=== PATIENT | female | born 1985 | race American Indian/Alaskan Native ===

== ENCOUNTER 2018-05-24 19:02 | Emergency (ER) | payer MEDICAID ==
--- NOTE | 2018-05-24 19:26 | Emergency Department Report ---
Blank Doc - Documentation Documentation: This is a 33-year-old female that presents with abdominal pain with nausea and vomiting x1 day. Denies any other complaints or symptoms. This initial assessment diagnostic orders/clinical plan/treatment(s) is/are subject to change based on patient's health status, clinical progression and re- assessment by fellow clinical providers in the ED. Further treatment and workup at subsequent clinical providers discretion. Patient/guardians urged not to elope from ED s their condition may be serious if not clinically assessed and managed. Initial orders include: 1-Patient sent to [facility] for further evaluation and treatment 2- UA 3- labs
[2018-05-24 20:22] LABS: Alanine Aminotransferase 11 units/L (7-56); Albumin 3.7 g/dL (3.9-5); BUN/Creatinine Ratio 17; Blood Urea Nitrogen 12 mg/dL (7-17); Calcium 8.3 mg/dL (8.4-10.2); Hemolysis Index 1
[2018-05-24 20:25] LABS: Basophils % (Auto) 0.2 % (0.0-1.8); Eosinophils # (Auto) 0.2 K/mm3 (0.0-0.4); Eosinophils % (Auto) 2.6 % (0.0-4.3); Hematocrit 36.3 % (30.3-42.9); Hemoglobin 11.9 gm/dl (10.1-14.3); Lymphocytes # (Auto) 1.1 K/mm3 (1.2-5.4); Mean Corpuscular HGB Conc 33 % (30-34); Mean Corpuscular Volume 84 fl (79-97); Monocytes # (Auto) 0.4 K/mm3 (0.0-0.8); Monocytes % (Auto) 6.6 % (0.0-7.3); Platelet Count 271 K/mm3 (140-440); Red Blood Count 4.31 M/mm3 (3.65-5.03); Red Cell Distribution Width 13.8 % (13.2-15.2)
[2018-05-24] MEDS ORDERED: ZOFRAN ODT ONE (22:55)
[2018-05-24] MEDS ORDERED: TYLENOL ONE (22:55)
[2018-05-24] MEDS ORDERED: TYLENOL PO ONE (22:56)
[2018-05-24] MEDS ORDERED: ZOFRAN ODT PO ONE (22:56)
--- NOTE | 2018-05-24 23:41 | Ultrasound Report ---
FINAL REPORT PROCEDURE: US OB < = 14 WEEKS FETUS TECHNIQUE: Real-time transabdominal sonography of the uterus, placenta, amniotic fluid, adnexa, and fetus was performed with image documentation. Measurements were obtained to determine age/size. M-mode Doppler was used to document heartbeat. CPT 22434 HISTORY: +hcg, abd pain ,n/v COMPARISON: No prior studies are available for comparison. FINDINGS: CRL: 2.5 mm, which corresponds to a gestational age of: 5 weeks, 6 days. Yolk Sac: Normal. Embryonic Cardiac Activity: 104 beats per minute Gestational Sac: Normal. Amniotic fluid: Normal. Cervix: Normal. Right Ovary: Normal. Left Ovary: There is a 3 centimeters cyst in the left ovary. Estimated delivery date: 01/18/2019 Uterus and adnexa: Normal. IMPRESSION: Single live intrauterine gestation at approximately 5 weeks and 6 days. EDC by US 01/18/2019
--- NOTE | 2018-05-24 23:42 | Ultrasound Report ---
FINAL REPORT PROCEDURE: US OB transvaginal TECHNIQUE: Real-time transvaginal sonography of the uterus, placenta, amniotic fluid, adnexa, and fe tus was performed with image documentation. Measurements were obtained to determine age/size. M -mode Doppler was used to document heartbeat. HISTORY: +hcg, abd pain ,n/v COMPARISON: No prior studies are available for comparison. FINDINGS: CRL: 2.5 mm, which corresponds to a gestational age of: 5 weeks, 6 days. Yolk Sac: Normal. Embryonic Cardiac Activity: 104 beats per minute Gestational Sac: Normal. Amniotic fluid: Normal. Cervix: Normal. Right Ovary: Normal. Left Ovary: There is a 3 centimeters cyst in the left ovary. Estimated delivery date: 01/18/2019 Uterus and adnexa: Normal. IMPRESSION: Single live intrauterine gestation at approximately 5 weeks and 6 days. EDC by US 01/18/2019
--- NOTE | 2018-05-25 00:01 | Emergency Department Report ---
ED Female HPI - General Chief complaint: Abdominal Pain Stated complaint: DIARRHEA/VOMITING/ABD PAIN Time Seen by Provider: 05/24/18 19:24 Source: patient Mode of arrival: Ambulatory Limitations: No Limitations - History of Present Illness Initial comments: 33-year-old -[place] female comes in complaining of abdominal pain, nausea, vomiting and diarrhea as well as all over body aches since 03 100 this morning. She is 3 para 1. No complications. Last menstrual period was 04/06/2018. Patient denies any vaginal bleeding or vaginal discharge. Patient has taken nothing for pain. Patient reports a past medical history asthma and kidney stones. Patient reports that her fianc and her 3-year-old son has the same symptoms. -: This morning Time: 03:00 Location: suprapubic Radiation: non-radiating Severity: severe Severity scale (0 -10): 10 Quality: sharp, aching Consistency: constant Improves with: none Worsens with: none Are you Now?: No Last Menstrual Period: 04/06/18 EDC: 01/11/19 Associated Symptoms: nausea/vomiting, other (diarrhea) - Related Data Sexually active: Yes : 3 Para: 1 A: 1 Previous Rx's Medication Instructions Recorded Last Taken Type ALBUTEROL Inhaler (OR & NICU) 2 puff IH QID PRN #1 inhalation 05/26/14 Unknown Rx [ProAir HFA Inhaler] Loratadine [Claritin] 10 mg PO DAILY #30 tablet 05/26/14 Unknown Rx Promethazine /Codeine 5 ml PO Q6H PRN #150 ml 05/26/14 Unknown Rx [Phenergan/Codeine 6.25-10 mg/5 ml] predniSONE [Deltasone] 40 mg PO QDAY #10 tab 05/26/14 Unknown Rx Albuterol Sulfate [Ventolin HFA] 2 puff IH Q4H PRN #1 hfa.aer.ad 07/12/14 Unknown Rx Ondansetron [Zofran Odt] 4 mg PO Q6H PRN #15 tab.rapdis 07/12/14 Unknown Rx oxyCODONE /ACETAMINOPHEN [Percocet 1 tab PO Q6HR PRN #10 tablet 07/12/14 Unknown Rx 5/325] predniSONE [Deltasone] 50 mg PO QDAY #4 tab 07/12/14 Unknown Rx ALBUTEROL NEB's [Proventil 0.083% 2.5 mg IH TID PRN #1 box 08/18/14 Unknown Rx NEBS] predniSONE [Prednisone] 40 mg PO DAILY 5 Days tablet 08/18/14 Unknown Rx Acetaminophen/Codeine [Tylenol 1 tab PO Q6H PRN #12 tab 02/20/18 Unknown Rx /Codeine # 3 tab] Doxylamine Succinate [Sleep Aid] 25 mg PO BID #40 tablet 05/25/18 Unknown Rx Kassi Root [Kassi] 250 mg PO QID #40 capsule 05/25/18 Unknown Rx Pnv,Calcium 72/Iron/Folic Acid 1 each PO QDAY #90 tablet 05/25/18 Unknown Rx [ Plus Tablet] Pyridoxine HCl (Vitamin B6) [B-6] 200 mg PO BID #40 tablet.er 05/25/18 Unknown Rx Allergies Allergy/AdvReac Type Severity Reaction Status Date / Time aspirin Allergy Rash Verified 08/09/13 04:58 iodine Allergy Swelling Verified 04/27/14 21:36 shellfish derived Allergy Swelling Verified 04/27/14 21:36 ED Review of Systems ROS: Stated complaint: DIARRHEA/VOMITING/ABD PAIN Other details as noted in HPI Comment: All other systems reviewed and negative Constitutional: denies: chills, fever Gastrointestinal: abdominal pain, nausea, vomiting, diarrhea Skin: denies: rash, lesions Neurological: denies: headache, weakness, paresthesias Psychiatric: denies: anxiety, depression ED Past Medical Hx - Past Medical History Hx Kidney Stones: Yes Hx Asthma: Yes - Social History Smoking Status: Never Smoker Substance Use Type: Alcohol - Medications Home Medications: Home Medications Medication Instructions Recorded Confirmed Last Taken Type ALBUTEROL Inhaler (OR & NICU) 2 puff IH QID PRN #1 inhalation 05/26/14 Unknown Rx [ProAir HFA Inhaler] Loratadine [Claritin] 10 mg PO DAILY #30 tablet 05/26/14 Unknown Rx Promethazine /Codeine 5 ml PO Q6H PRN #150 ml 05/26/14 Unknown Rx [Phenergan/Codeine 6.25-10 mg/5 ml] predniSONE [Deltasone] 40 mg PO QDAY #10 tab 05/26/14 Unknown Rx Albuterol Sulfate [Ventolin HFA] 2 puff IH Q4H PRN #1 hfa.aer.ad 07/12/14 Unknown Rx Ondansetron [Zofran Odt] 4 mg PO Q6H PRN #15 tab.rapdis 07/12/14 Unknown Rx oxyCODONE /ACETAMINOPHEN [Percocet 1 tab PO Q6HR PRN #10 tablet 07/12/14 Unknown Rx 5/325] predniSONE [Deltasone] 50 mg PO QDAY #4 tab 07/12/14 Unknown Rx ALBUTEROL NEB's [Proventil 0.083% 2.5 mg IH TID PRN #1 box 08/18/14 Unknown Rx NEBS] predniSONE [Prednisone] 40 mg PO DAILY 5 Days tablet 08/18/14 Unknown Rx Acetaminophen/Codeine [Tylenol 1 tab PO Q6H PRN #12 tab 02/20/18 Unknown Rx /Codeine # 3 tab] Doxylamine Succinate [Sleep Aid] 25 mg PO BID #40 tablet 05/25/18 Unknown Rx Kassi Root [Kassi] 250 mg PO QID #40 capsule 05/25/18 Unknown Rx Pnv,Calcium 72/Iron/Folic Acid 1 each PO QDAY #90 tablet 05/25/18 Unknown Rx [ Plus Tablet] Pyridoxine HCl (Vitamin B6) [B-6] 200 mg PO BID #40 tablet.er 05/25/18 Unknown Rx ED Physical Exam - General Limitations: No Limitations General appearance: alert, in no apparent distress - Head Head exam: Present: atraumatic, normocephalic - Eye Eye exam: Present: normal appearance, EOMI - ENT ENT exam: Present: mucous membranes moist ED Course Vital Signs 05/24/18 19:25 Temperature 98.4 F Pulse Rate 102 H Respiratory 18 Rate Blood Pressure 118/75 O2 Sat by Pulse 99 Oximetry ED Medical Decision Making - Lab Data Result diagrams: 05/24/18 19:35 05/24/18 19:35 - Radiology Data Radiology results: report reviewed Patient: POLLO MOHR MR#: [id number] : 1985 Acct:[id number] Age/Sex: 33 / F ADM Date: 05/24/18 Loc: ED Attending Dr: Ordering Physician: TOD PHELAN Date of Service: 05/24/18 Procedure(s): US OB <= 14 weeks fetus Accession Number(s): [id number] cc: TOD PHELAN FINAL REPORT PROCEDURE: US OB lt; = 14 WEEKS FETUS TECHNIQUE: Real-time transabdominal sonography of the uterus, placenta, amniotic fluid, adnexa, and fetus was performed with image documentation. Measurements were obtained to determine age/size. M-mode Doppler was used to document heartbeat. CPT 51474 HISTORY: +hcg, abd pain ,n/v COMPARISON: No prior studies are available for comparison. FINDINGS: CRL: 2.5 mm, which corresponds to a gestational age of: 5 weeks, 6 days. Yolk Sac: Normal. Embryonic Cardiac Activity: 104 beats per minute Gestational Sac: Normal. Amniotic fluid: Normal. Cervix: Normal. Right Ovary: Normal. Left Ovary: There is a 3 centimeters cyst in the left ovary. Estimated delivery date: 01/18/2019 Uterus and adnexa: Normal. IMPRESSION: Single live intrauterine gestation at approximately 5 weeks and 6 days. EDC by 01/18/2019 Transcribed By: CO Dictated By: BRAULIO ALCAZAR MD Electronically Authenticated By: BRAULIO ALCAZAR MD Signed Date/Time: 05/24/182340 DD/ 39 TD/TT: 05/24/182339 Critical care attestation.: If time is entered above; I have spent that time in minutes in the direct care of this critically ill patient, excluding procedure time. ED Disposition Clinical Impression: Nausea vomiting and diarrhea Qualifiers: Weeks of gestation: less than 8 weeks Qualified Code(s): Z3A.01 - Less than 8 weeks gestation of Disposition: DC-01 TO HOME OR SELFCARE Is pt being admited?: No Does the pt Need Aspirin: No Condition: Stable Instructions: Abdominal Pain (ED) Additional Instructions: Please take medication as prescribed. Please increase her fluid intake and advance her diet as tolerated. Please follow up with [facility]. Prescriptions: Doxylamine Succinate [Sleep Aid] 25 mg PO BID #40 tablet Kassi Root [Kassi] 250 mg PO QID #40 capsule Pnv,Calcium 72/Iron/Folic Acid [ Plus Tablet] 1 each PO QDAY #90 tablet Pyridoxine HCl (Vitamin B6) [B-6] 200 mg PO BID #40 tablet.er Referrals: [facility] [Provider Group] - 3-5 Days [facility] [Provider Group] - 3-5 Days [facility] [Provider Group] - 3-5 Days Forms: Work/School Release Form(ED), Accompanied Note
[2018-05-25 00:52] VITALS: BP 113/73
[2018-05-25] MEDS ORDERED: ZOFRAN ODT PO ONE (01:08)
[2018-05-25] MEDS ORDERED: ZOFRAN ODT ONE (01:11)
[2018-05-25 01:21] LABS: Bilirubin,Urine NEG (Negative); Blood,Urine NEG (Negative); Color,Urine Yellow (Yellow); Hyaline Casts,Urine 1 /LPF; Mucus,Urine 2+ /HPF; Urobilinogen,Urine < 2.0 mg/dL (<2.0)
== END 2018-05-25 01:34 | disposition home or self-care (01) ==
LOC: ED 19:02
DX: O26.891 Other specified pregnancy related conditions, first trimester (principal); R11.0 Nausea; O21.8 Other vomiting complicating pregnancy; R19.7 Diarrhea, unspecified; O99.511 Diseases of the respiratory system complicating pregnancy, first trimester; Z79.899 Other long term (current) drug therapy; Z88.6 Allergy status to analgesic agent; Z3A.01 Less than 8 weeks gestation of pregnancy; Z91.013 Allergy to seafood
CPT/HCPCS: 36415; 76801; 76817; 80053; 81001; 83690; 84702; 84703; 85025; Q0162

== ENCOUNTER 2018-06-28 09:56 | Emergency (ER) | payer MEDICAID ==
[2018-06-28 10:18] VITALS: BP 115/76
--- NOTE | 2018-06-28 11:34 | Emergency Department Report ---
ED HPI - General Chief complaint: Vaginal Bleeding Stated complaint: 8WKS/BLEEDING/PAIN Source: patient Mode of arrival: Ambulatory Limitations: No Limitations - History of Present Illness Initial comments: This is a 33-year-old -[place] female who presents with vaginal bleeding and abdominal pain since this morning. Patient states she is [address] Brumfield in [facility]. Her last menstrual period was 04/19/2018, A1 . She reports sharp pain in the pelvic region. Patient states she woke up this morning and she went to the restroom and small blood in the mucus discharge in toilet. She continued to wipe and saw spotting and tissue. She has soft tissue currently in panties. She also complains of some low back pain. She denies nausea, vomiting, diarrhea, vaginal discharge, tenderness, or chest pain. MD Complaint: abdominal pain, vaginal bleeding -: This morning Location: pelvis Radiation: back Severity: severe Severity scale (0 -10): 9 Quality: sharp Consistency: constant Improves with: none Worsens with: none Associated symptoms: vaginal bleeding, abdominal pain. denies: nausea/vomiting, vaginal discharge, dysuria, headache, vision changes, malaise, dysparuenia, rash, seizure, shortness of breath, syncope, weakness Vaginal bleeding: light :: Yes Number of weeks : 8 OB History - Current : no complications OB History - Previous Pregnancies: no complications Last menstrual period: 04/19/18 Pre- care: followed by OB - Related Data : 3 Para: 1 Ab: 1 () Previous Rx's Medication Instructions Recorded Last Taken Type ALBUTEROL Inhaler (OR & NICU) 2 puff IH QID PRN #1 inhalation 05/26/14 Unknown Rx [ProAir HFA Inhaler] Loratadine [Claritin] 10 mg PO DAILY #30 tablet 05/26/14 Unknown Rx Promethazine /Codeine 5 ml PO Q6H PRN #150 ml 05/26/14 Unknown Rx [Phenergan/Codeine 6.25-10 mg/5 ml] predniSONE [Deltasone] 40 mg PO QDAY #10 tab 05/26/14 Unknown Rx Albuterol Sulfate [Ventolin HFA] 2 puff IH Q4H PRN #1 hfa.aer.ad 07/12/14 U nknown Rx Ondansetron [Zofran Odt] 4 mg PO Q6H PRN #15 tab.rapdis 07/12/14 Unknown Rx oxyCODONE /ACETAMINOPHEN [Percocet 1 tab PO Q6HR PRN #10 tablet 07/12/14 Unknown Rx 5/325] predniSONE [Deltasone] 50 mg PO QDAY #4 tab 07/12/14 Unknown Rx ALBUTEROL NEB's [Proventil 0.083% 2.5 mg IH TID PRN #1 box 08/18/14 Unknown Rx NEBS] predniSONE [Prednisone] 40 mg PO DAILY 5 Days tablet 08/18/14 Unknown Rx Acetaminophen/Codeine [Tylenol 1 tab PO Q6H PRN #12 tab 02/20/18 Unknown Rx /Codeine # 3 tab] Doxylamine Succinate [Sleep Aid] 25 mg PO BID #40 tablet 05/25/18 Unknown Rx Kassi Root [Kassi] 250 mg PO QID #40 capsule 05/25/18 Unknown Rx Pnv,Calcium 72/Iron/Folic Acid 1 each PO QDAY #90 tablet 05/25/18 Unknown Rx [ Plus Tablet] Pyridoxine HCl (Vitamin B6) [B-6] 200 mg PO BID #40 tablet.er 05/25/18 Unknown Rx Allergies Allergy/AdvReac Type Severity Reaction Status Date / Time aspirin Allergy Rash Verified 08/09/13 04:58 iodine Allergy Swelling Verified 04/27/14 21:36 shellfish derived Allergy Swelling Verified 04/27/14 21:36 ED Review of Systems ROS: Stated complaint: 8WKS/BLEEDING/PAIN Other details as noted in HPI Constitutional: denies: chills, fever Respiratory: denies: cough, shortness of breath, wheezing Cardiovascular: denies: chest pain, palpitations Gastrointestinal: abdominal pain. denies: nausea, diarrhea Genitourinary: other (vaginal bleed and/or ). denies: urgency, dysuria, discharge Musculoskeletal: back pain. denies: joint swelling, arthralgia Skin: denies: rash, lesions Neurological: denies: headache, weakness, paresthesias Psychiatric: denies: anxiety, depression ED Past Medical Hx - Past Medical History Hx Kidney Stones: Yes Hx Asthma: Yes - Surgical History Past Surgical History?: No - Social History Smoking Status: Former Smoker Substance Use Type: None - Medications Home Medications: Home Medications Medication Instructions Recorded Confirmed Last Taken Type ALBUTEROL Inhaler (OR & NICU) 2 puff IH QID PRN #1 inhalation 05/26/14 Unknown Rx [ProAir HFA Inhaler] Loratadine [Claritin] 10 mg PO DAILY #30 tablet 05/26/14 Unknown Rx Promethazine /Codeine 5 ml PO Q6H PRN #150 ml 05/26/14 Unknown Rx [Phenergan/Codeine 6.25-10 mg/5 ml] predniSONE [Deltasone] 40 mg PO QDAY #10 tab 05/26/14 Unknown Rx Albuterol Sulfate [Ventolin HFA] 2 puff IH Q4H PRN #1 hfa.aer.ad 07/12/14 Unknown Rx Ondansetron [Zofran Odt] 4 mg PO Q6H PRN #15 tab.rapdis 07/12/14 Unknown Rx oxyCODONE /ACETAMINOPHEN [Percocet 1 tab PO Q6HR PRN #10 tablet 07/12/14 Unknown Rx 5/325] predniSONE [Deltasone] 50 mg PO QDAY #4 tab 07/12/14 Unknown Rx ALBUTEROL NEB's [Proventil 0.083% 2.5 mg IH TID PRN #1 box 08/18/14 Unknown Rx NEBS] predniSONE [Prednisone] 40 mg PO DAILY 5 Days tablet 08/18/14 Unknown Rx Acetaminophen/Codeine [Tylenol 1 tab PO Q6H PRN #12 tab 02/20/18 Unknown Rx /Codeine # 3 tab] Doxylamine Succinate [Sleep Aid] 25 mg PO BID #40 tablet 05/25/18 Unknown Rx Kassi Root [Kassi] 250 mg PO QID #40 capsule 05/25/18 Unknown Rx Pnv,Calcium 72/Iron/Folic Acid 1 each PO QDAY #90 tablet 05/25/18 Unknown Rx [ Plus Tablet] Pyridoxine HCl (Vitamin B6) [B-6] 200 mg PO BID #40 tablet.er 05/25/18 Unknown Rx ED Physical Exam - General Limitations: No Limitations General appearance: alert, in no apparent distress, obese - Respiratory Respiratory exam: Present: normal lung sounds bilaterally. Absent: respiratory distress - Cardiovascular Cardiovascular Exam: Present: regular rate, normal rhythm. Absent: systolic murmur, diastolic murmur, rubs, gallop - GI/Abdominal GI/Abdominal exam: Present: soft, tenderness (right upper quadrant and right lower quadrant tenderness), normal bowel sounds. Absent: distended, guarding, rebound, rigid - Back Exam Back exam: Present: normal inspection - Neurological Exam Neurological exam: Present: alert, oriented X3, normal gait - Psychiatric Psychiatric exam: Present: normal affect, normal mood - Skin Skin exam: Present: warm, dry, intact, normal color. Absent: rash ED Course Vital Signs 06/28/18 10:16 Temperature 98.1 F Pulse Rate 100 H Respiratory 20 Rate Blood Pressure 115/76 O2 Sat by Pulse 98 Oximetry ED Medical Decision Making - Lab Data Result diagrams: 06/28/18 11:36 Lab Results 06/28/18 06/28/18 06/28/18 Range/Units 11:36 11:36 11:36 WBC 9.4 (4.5-11.0) K/mm3 RBC 4.19 (3.65-5.03) M/mm3 Hgb 11.6 (10.1-14.3) gm/dl Hct 34.9 (30.3-42.9) % MCV 83 (79-97) fl MCH 28 (28-32) pg MCHC 33 (30-34) % RDW 13.9 (13.2-15.2) % Plt Count 310 (140-440) K/mm3 Lymph % (Auto) 25.2 (13.4-35.0) % [place] % (Auto) 8.3 H (0.0-7.3) % Eos % (Auto) 2.3 (0.0-4.3) % Baso % (Auto) 0.4 (0.0-1.8) % Lymph # 2.4 (1.2-5.4) K/mm3 [place] # 0.8 (0.0-0.8) K/mm3 Eos # 0.2 (0.0-0.4) K/mm3 Baso # 0.0 (0.0-0.1) K/mm3 Seg Neutrophils % 63.8 (40.0-70.0) % Seg Neutrophils # 6.0 (1.8-7.7) K/mm3 HCG, Quant 66552 H (0-4) mIU/mL Urine Color (Yellow) Urine Turbidity (Clear) Urine pH (5.0-7.0) Ur Specific [place] (1.003-1.030) Urine Protein (Negative) mg/dL Urine Glucose (UA) (Negative) mg/dL Urine Ketones (Negative) mg/dL Urine Blood (Negative) Urine Nitrite (Negative) Urine Bilirubin (Negative) Urine Urobilinogen (<2.0) mg/dL Ur Leukocyte Esterase (Negative) Urine WBC (Auto) (0.0-6.0) /HPF Urine RBC (Auto) (0.0-6.0) /HPF U Epithel Cells (Auto) (0-13.0) /HPF Blood Type B POSITIVE Antibody Screen Negative 06/28/18 Range/Units 11:37 WBC (4.5-11.0) K/mm3 RBC (3.65-5.03) M/mm3 Hgb (10.1-14.3) gm/dl Hct (30.3-42.9) % MCV (79-97) fl MCH (28-32) pg MCHC (30-34) % RDW (13.2-15.2) % Plt Count (140-440) K/mm3 Lymph % (Auto) (13.4-35.0) % [place] % (Auto) (0.0-7.3) % Eos % (Auto) (0.0-4.3) % Baso % (Auto) (0.0-1.8) % Lymph # (1.2-5.4) K/mm3 [place] # (0.0-0.8) K/mm3 Eos # (0.0-0.4) K/mm3 Baso # (0.0-0.1) K/mm3 Seg Neutrophils % (40.0-70.0) % Seg Neutrophils # (1.8-7.7) K/mm3 HCG, Quant (0-4) mIU/mL Urine Color Straw (Yellow) Urine Turbidity Clear (Clear) Urine pH 8.0 H (5.0-7.0) Ur Specific [place] 1.013 (1.003-1.030) Urine Protein <15 mg/dl (Negative) mg/dL Urine Glucose (UA) Neg (Negative) mg/dL Urine Ketones Neg (Negative) mg/dL Urine Blood Neg (Negative) Urine Nitrite Neg (Negative) Urine Bilirubin Neg (Negative) Urine Urobilinogen < 2.0 (<2.0) mg/dL Ur Leukocyte Esterase Neg (Negative) Urine WBC (Auto) 1.0 (0.0-6.0) /HPF Urine RBC (Auto) 4.0 (0.0-6.0) /HPF U Epithel Cells (Auto) 1.0 (0-13.0) /HPF Blood Type Antibody Screen - Radiology Data Radiology results: report reviewed ULTRASOUND ABDOMEN LIMITED: TECHNIQUE: Transabdominal ultrasound with color Doppler interrogation. HISTORY: Right upper quadrant tenderness. COMPARISON: none. FINDINGS: LIVER: Normal. BILIARY SYSTEM: Normal. PANCREAS: Normal. RIGHT KIDNEY: The right kidney measures 12 cm in length. A 5 mm echogenic focus with mild shadowing is noted in the inferior left kidney which could represent a nonobstructing stone. No evidence for cystic disease, mass or parenchymal disease. PROXIMAL AORTA: Normal. ASCITES: None. IMPRESSION: 5 mm calculus in the mid to inferior right kidney, nonobstructing. Unremarkable liver and biliary system. ULTRASOUND OB LESS THAN 14 WEEKS FETUS ULTRASOUND OB TRANSVAGINAL HISTORY: Vaginal bleeding during , right upper and lower quadrant tenderness. TECHNIQUE: Transabdominal and transvaginal ultrasound imaging. FINDINGS: The uterus is retroflexed and measures 15 x 7 x 8 cm. No obvious uterine fibroids are identified. The cervix is unremarkable. An intrauterine gestational sac containing a pole and yolk sac is identified. [place]-rump length measures 30.5 mm which correlates with a 9 week 6 day . Estimated due date is 01/25/19. No heart rate could be demonstrated on this exam. A small to medium subchorionic hemorrhage is identified along the superior border of the gestational sac. The right ovary is unremarkable and measures 2.5 x 0.8 x 1.1 cm. The left ovary measures 2.9 x 1.3 x 2.0 cm and contains a 1.8 cm simple cyst. No pelvic fluid collection is identified. IMPRESSION: demise. - Medical Decision Making This is a 33 y.o. female presents with vaginal bleeding and abdominal pain during since this morning. Patient was examined by me. Vitals are normal and patient is in no acute distress. Obtained a urinalysis, CBC, hCG quant, and OB ultrasound. Quant [id number], all other labs unremarkable. US dictated by radiologist, demise. Consulted attending and [facility], Francesca. Patient will need to take ibuprofen 800 mg or Tylenol 1 g for pain and follow-up with [facility] either at [facility] or [facility] within 1 week. Patient discharged home in stable condition. Critical care attestation.: If time is entered above; I have spent that time in minutes in the direct care of this critically ill patient, excluding procedure time. ED Disposition Clinical Impression: Abdominal pain affecting , Vaginal bleeding affecting early , demise, Spontaneous Disposition: TO HOME OR SELFCARE Is pt being admited?: No Does the pt Need Aspirin: No Condition: Stable Instructions: Spontaneous Miscarriage (ED) Additional Instructions: Have repeat hCG quant labs in 48 hours with [facility] or ER. Your hCG quantitative on this visit was [id number]. Remain on bed rest. Follow up with [facility] in 24-48 hours. Return to ER if increased vaginal bleeding, abdominal pain, and low back pain. [facility]Other[facility] - 3-5 Days [facility] [Provider Group] - 3-5 Days Forms: Work/School Release Form(ED) Time of Disposition: 18:01
[2018-06-28 11:47] LABS: Basophils % (Auto) 0.4 % (0.0-1.8); Eosinophils # (Auto) 0.2 K/mm3 (0.0-0.4); Eosinophils % (Auto) 2.3 % (0.0-4.3); Hematocrit 34.9 % (30.3-42.9); Hemoglobin 11.6 gm/dl (10.1-14.3); Lymphocytes # (Auto) 2.4 K/mm3 (1.2-5.4); Lymphocytes % (Auto) 25.2 % (13.4-35.0); Mean Corpuscular HGB Conc 33 % (30-34); Mean Corpuscular Volume 83 fl (79-97); Monocytes # (Auto) 0.8 K/mm3 (0.0-0.8); Monocytes % (Auto) 8.3 % (0.0-7.3); Platelet Count 310 K/mm3 (140-440); Red Blood Count 4.19 M/mm3 (3.65-5.03); Red Cell Distribution Width 13.9 % (13.2-15.2)
[2018-06-28 12:24] LABS: Bilirubin,Urine NEG (Negative); Blood,Urine NEG (Negative); Color,Urine Straw (Yellow); Protein,Urine <15 mg/dL mg/dL (Negative); Urobilinogen,Urine < 2.0 mg/dL (<2.0)
--- NOTE | 2018-06-28 14:37 | Ultrasound Report ---
ULTRASOUND OB LESS THAN 14 WEEKS FETUS ULTRASOUND OB TRANSVAGINAL HISTORY: Vaginal bleeding during , right upper and lower quadrant tenderness. TECHNIQUE: Transabdominal and transvaginal ultrasound imaging. FINDINGS: The uterus is retroflexed and measures 15 x 7 x 8 cm. No obvious uterine fibroids are identified. The cervix is unremarkable. An intrauterine gestational sac containing a pole and yolk sac is identified. [place]-rump length measures 30.5 mm which correlates with a 9 week 6 day . Estimated due date is 01/25/19. No heart rate could be demonstrated on this exam. A small to medium subchorionic hemorrhage is identified along the superior border of the gestational sac. The right ovary is unremarkable and measures 2.5 x 0.8 x 1.1 cm. The left ovary measures 2.9 x 1.3 x 2.0 cm and contains a 1.8 cm simple cyst. No pelvic fluid collection is identified. IMPRESSION: demise.
--- NOTE | 2018-06-28 14:38 | Ultrasound Report ---
ULTRASOUND ABDOMEN LIMITED: TECHNIQUE: Transabdominal ultrasound with color Doppler interrogation. HISTORY: Right upper quadrant tenderness. COMPARISON: none. FINDINGS: LIVER: Normal. BILIARY SYSTEM: Normal. PANCREAS: Normal. RIGHT KIDNEY: The right kidney measures 12 cm in length. A 5 mm echogenic focus with mild shadowing is noted in the inferior left kidney which could represent a nonobstructing stone. No evidence for cystic disease, mass or parenchymal disease. PROXIMAL AORTA: Normal. ASCITES: None. IMPRESSION: 5 mm calculus in the mid to inferior right kidney, nonobstructing. Unremarkable liver and biliary system.
[2018-06-28] MEDS ORDERED: TYLENOL PO ONE (16:47)
== END 2018-06-28 18:28 | disposition home or self-care (01) ==
LOC: ED 09:56
DX: O03.9 Complete or unspecified spontaneous abortion without complication (principal); O99.511 Diseases of the respiratory system complicating pregnancy, first trimester; Z3A.08 8 weeks gestation of pregnancy; Z87.891 Personal history of nicotine dependence; Z79.899 Other long term (current) drug therapy; Z88.6 Allergy status to analgesic agent; Z91.013 Allergy to seafood
CPT/HCPCS: 36415; 76705; 76801; 76817; 81001; 84702; 85025; 85461; 86850; 86900; 86901; 87210; 87591

== ENCOUNTER 2018-10-20 15:12 | Emergency (ER) | payer MEDICAID | END 2018-10-20 16:55 | disposition left against medical advice (07) | LOC: ED 15:12 | DX: R06.02 Shortness of breath (principal); Z53.21 Procedure and treatment not carried out due to patient leaving prior to being seen by health care provider ==

== ENCOUNTER 2018-12-31 14:32 | Emergency (ER) | payer MEDICAID ==
[2018-12-31] MEDS ORDERED: ASPIRIN 325 MG TAB PO ONE (15:02)
[2018-12-31 15:51] LABS: Basophils # (Auto) 0.1 K/mm3 (0.0-0.1); Basophils % (Auto) 0.6 % (0.0-1.8); Eosinophils # (Auto) 0.2 K/mm3 (0.0-0.4); Eosinophils % (Auto) 1.5 % (0.0-4.3); Hematocrit 31.7 % (30.3-42.9); Hemoglobin 10.2 gm/dl (10.1-14.3); Lymphocytes # (Auto) 2.1 K/mm3 (1.2-5.4); Lymphocytes % (Auto) 19.5 % (13.4-35.0); Mean Corpuscular HGB Conc 32 % (30-34); Mean Corpuscular Volume 84 fl (79-97); Monocytes # (Auto) 1.1 K/mm3 (0.0-0.8); Monocytes % (Auto) 10.1 % (0.0-7.3); Platelet Count 286 K/mm3 (140-440); Red Blood Count 3.76 M/mm3 (3.65-5.03); Red Cell Distribution Width 14.7 % (13.2-15.2)
[2018-12-31 16:11] LABS: BUN/Creatinine Ratio 15; Blood Urea Nitrogen 6 mg/dL (7-17); Calcium 8.8 mg/dL (8.4-10.2); Hemolysis Index 7
[2018-12-31 16:14] LABS: Alanine Aminotransferase 6 units/L (7-56); Albumin 3.7 g/dL (3.9-5)
[2018-12-31 16:15] LABS: Bilirubin,Direct < 0.2 mg/dL (0-0.2)
[2018-12-31] MEDS ORDERED: diphenhydrAMINE 50 MG/ML VIAL IV ONE (18:37)
[2018-12-31] MEDS ORDERED: SODIUM CHLORIDE 0.9% 1000 ML 1,000 ML IV ONE (18:37)
[2018-12-31] MEDS ORDERED: METOCLOPRAMIDE 10 MG/2 ML INJ IV ONE (18:37)
--- NOTE | 2018-12-31 19:50 | Emergency Department Report ---
ED General Adult HPI - General Chief complaint: Chest Pain Stated complaint: CHEST PAIN Time Seen by Provider: 12/31/18 18:25 Source: patient Mode of arrival: Wheelchair Limitations: No Limitations - History of Present Illness Initial comments: Patient is a 33-year-old female who presents emergency room with complaints of palpitations that began again last night. States she has associated left-sided chest pain that radiated to her left arm. She states she is currently 18 weeks . Patient denies any shortness of breath, lower extremity edema, abdominal pain, vaginal bleeding. She denies any caffeine or stimulant use. Patient has a past medical history of asthma. she denies any new medications. she states prior to she did use tobacco products and alcohol. She states that her BRAINER is Dr. Brumfield. She states that the only medications she is taking currently are promethazine and Tylenol. Patient states that she has been seen by [facility] for these palpitations. she states that she wore a Holter monitor this week and turned it and yesterday but has not received her results yet. She states that she has an echo scheduled for next week and a lower extremity ultrasound scheduled. /P:1/A:2 - Related Data Previous Rx's Medication Instructions Recorded Last Taken Type ALBUTEROL Inhaler (OR & NICU) 2 puff IH QID PRN #1 inhalation 05/26/14 Unknown Rx [ProAir HFA Inhaler] Loratadine [Claritin] 10 mg PO DAILY #30 tablet 05/26/14 Unknown Rx Promethazine /Codeine 5 ml PO Q6H PRN #150 ml 05/26/14 Unknown Rx [Phenergan/Codeine 6.25-10 mg/5 ml] predniSONE [Deltasone] 40 mg PO QDAY #10 tab 05/26/14 Unknown Rx Albuterol Sulfate [Ventolin HFA] 2 puff IH Q4H PRN #1 hfa.aer.ad 07/12/14 Unknown Rx Ondansetron [Zofran Odt] 4 mg PO Q6H PRN #15 tab.rapdis 07/12/14 Unknown Rx oxyCODONE /ACETAMINOPHEN [Percocet 1 tab PO Q6HR PRN #10 tablet 07/12/14 Unknown Rx 5/325] predniSONE [Deltasone] 50 mg PO QDAY #4 tab 07/12/14 Unknown Rx ALBUTEROL NEB's [Proventil 0.083% 2.5 mg IH TID PRN #1 box 08/18/14 Unknown Rx NEBS] predniSONE [Prednisone] 40 mg PO DAILY 5 Days tablet 08/18/14 Unknown Rx Acetaminophen/Codeine [Tylenol 1 tab PO Q6H PRN #12 tab 02/20/18 Unknown Rx /Codeine # 3 tab] Doxylamine Succinate [Sleep Aid] 25 mg PO BID #40 tablet 05/25/18 Unknown Rx Kassi Root [Kassi] 250 mg PO QID #40 capsule 05/25/18 Unknown Rx Pnv,Calcium 72/Iron/Folic Acid 1 each PO QDAY #90 tablet 05/25/18 Unknown Rx [ Plus Tablet] Pyridoxine HCl (Vitamin B6) [B-6] 200 mg PO BID #40 tablet.er 05/25/18 Unknown Rx Allergies Allergy/AdvReac Type Severity Reaction Status Date / Time aspirin Allergy Rash Verified 08/09/13 04:58 iodine Allergy Swelling Verified 04/27/14 21:36 shellfish derived Allergy Swelling Verified 04/27/14 21:36 ED Review of Systems ROS: Stated complaint: CHEST PAIN Other details as noted in HPI Comment: All other systems reviewed and negative ED Past Medical Hx - Past Medical History Previous Medical History?: Yes Hx Kidney Stones: Yes Hx Asthma: Yes - Surgical History Past Surgical History?: Yes Additional Surgical History: D&C - Social History Smoking Status: Never Smoker Substance Use Type: None - Medications Home Medications: Home Medications Medication Instructions Recorded Confirmed Last Taken Type ALBUTEROL Inhaler (OR & NICU) 2 puff IH QID PRN #1 inhalation 05/26/14 Unknown Rx [ProAir HFA Inhaler] Loratadine [Claritin] 10 mg PO DAILY #30 tablet 05/26/14 Unknown Rx Promethazine /Codeine 5 ml PO Q6H PRN #150 ml 05/26/14 Unknown Rx [Phenergan/Codeine 6.25-10 mg/5 ml] predniSONE [Deltasone] 40 mg PO QDAY #10 tab 05/26/14 Unknown Rx Albuterol Sulfate [Ventolin HFA] 2 puff IH Q4H PRN #1 hfa.aer.ad 07/12/14 Unknown Rx Ondansetron [Zofran Odt] 4 mg PO Q6H PRN #15 tab.rapdis 07/12/14 Unknown Rx oxyCODONE /ACETAMINOPHEN [Percocet 1 tab PO Q6HR PRN #10 tablet 07/12/14 Unknown Rx 5/325] predniSONE [Deltasone] 50 mg PO QDAY #4 tab 07/12/14 Unknown Rx ALBUTEROL NEB's [Proventil 0.083% 2.5 mg IH TID PRN #1 box 08/18/14 Unknown Rx NEBS] predniSONE [Prednisone] 40 mg PO DAILY 5 Days tablet 08/18/14 Unknown Rx Acetaminophen/Codeine [Tylenol 1 tab PO Q6H PRN #12 tab 02/20/18 Unknown Rx /Codeine # 3 tab] Doxylamine Succinate [Sleep Aid] 25 mg PO BID #40 tablet 05/25/18 Unknown Rx Kassi Root [Kassi] 250 mg PO QID #40 capsule 05/25/18 Unknown Rx Pnv,Calcium 72/Iron/Folic Acid 1 each PO QDAY #90 tablet 05/25/18 Unknown Rx [ Plus Tablet] Pyridoxine HCl (Vitamin B6) [B-6] 200 mg PO BID #40 tablet.er 05/25/18 Unknown Rx ED Physical Exam - General Limitations: No Limitations General appearance: alert, in no apparent distress - Head Head exam: Present: atraumatic, normocephalic - Eye Eye exam: Present: normal appearance - ENT ENT exam: Present: mucous membranes moist - Respiratory Respiratory exam: Present: normal lung sounds bilaterally. Absent: respiratory distress, wheezes, rales, rhonchi, stridor, chest wall tenderness, accessory muscle use, decreased breath sounds, prolonged expiratory - Cardiovascular Cardiovascular Exam: Present: regular rate, normal rhythm, normal heart sounds. Absent: systolic murmur, diastolic murmur, rubs, gallop - GI/Abdominal GI/Abdominal exam: Present: soft, normal bowel sounds. Absent: distended, tenderness, guarding, rebound, rigid - Extremities Exam Extremities exam: Absent: pedal edema - Back Exam Back exam: Absent: CVA tenderness (R), CVA tenderness (L) - Neurological Exam Neurological exam: Present: alert, oriented X3 - Psychiatric Psychiatric exam: Present: normal affect, normal mood - Skin Skin exam: Present: warm, dry, intact ED Course Vital Signs 12/31/18 12/31/18 12/31/18 14:59 19:01 21:14 Temperature 98.5 F 98.2 F Pulse Rate 100 H 118 H 88 Respiratory 22 18 Rate Blood Pressure 128/75 Blood Pressure 104/69 101/61 [Left] O2 Sat by Pulse 100 99 98 Oximetry 12/31/18 21:25 Temperature 98.2 F Pulse Rate 88 Respiratory 12 Rate Blood Pressure Blood Pressure 101/81 [Left] O2 Sat by Pulse 100 Oximetry ED Medical Decision Making - Lab Data Result diagrams: 12/31/18 15:31 12/31/18 15:31 Lab Results 12/31/18 12/31/18 12/31/18 Range/Units 15:31 15:31 15:31 WBC 10.6 (4.5-11.0) K/mm3 RBC 3.76 (3.65-5.03) M/mm3 Hgb 10.2 (10.1-14.3) gm/dl Hct 31.7 (30.3-42.9) % MCV 84 (79-97) fl MCH 27 L (28-32) pg MCHC 32 (30-34) % RDW 14.7 (13.2-15.2) % Plt Count 286 (140-440) K/mm3 Lymph % (Auto) 19.5 (13.4-35.0) % [place] % (Auto) 10.1 H (0.0-7.3) % Eos % (Auto) 1.5 (0.0-4.3) % Baso % (Auto) 0.6 (0.0-1.8) % Lymph # 2.1 (1.2-5.4) K/mm3 [place] # 1.1 H (0.0-0.8) K/mm3 Eos # 0.2 (0.0-0.4) K/mm3 Baso # 0.1 (0.0-0.1) K/mm3 Seg Neutrophils % 68.3 (40.0-70.0) % Seg Neutrophils # 7.2 (1.8-7.7) K/mm3 Sodium 137 (137-145) mmol/L Potassium 4.0 (3.6-5.0) mmol/L Chloride 104.6 (98-107) mmol/L Carbon Dioxide 17 L (22-30) mmol/L Anion Gap 19 mmol/L BUN 6 L (7-17) mg/dL Creatinine 0.4 L (0.7-1.2) mg/dL Estimated GFR > 60 ml/min BUN/Creatinine Ratio 15 % Glucose 74 (65-100) mg/dL Calcium 8.8 (8.4-10.2) mg/dL Phosphorus (2.5-4.5) mg/dL Magnesium (1.7-2.3) mg/dL Total Bilirubin < 0.20 (0.1-1.2) mg/dL Direct Bilirubin < 0.2 (0-0.2) mg/dL Indirect Bilirubin 0.0 mg/dL AST 10 (5-40) units/L ALT 6 L (7-56) units/L Alkaline Phosphatase 45 (35-129) units/L Total Creatine Kinase (30-135) units/L Troponin T < 0.010 (0.00-0.029) ng/mL NT-Pro-B Natriuret Pep (0-450) pg/mL Total Protein 7.1 (6.3-8.2) g/dL Albumin 3.7 L (3.9-5) g/dL Albumin/Globulin Ratio 1.1 % TSH (0.270-4.200) mlU/mL 12/31/18 12/31/18 12/31/18 Range/Units 17:59 20:08 20:08 WBC (4.5-11.0) K/mm3 RBC (3.65-5.03) M/mm3 Hgb (10.1-14.3) gm/dl Hct (30.3-42.9) % MCV (79-97) fl MCH (28-32) pg MCHC (30-34) % RDW (13.2-15.2) % Plt Count (140-440) K/mm3 Lymph % (Auto) (13.4-35.0) % [place] % (Auto) (0.0-7.3) % Eos % (Auto) (0.0-4.3) % Baso % (Auto) (0.0-1.8) % Lymph # (1.2-5.4) K/mm3 [place] # (0.0-0.8) K/mm3 Eos # (0.0-0.4) K/mm3 Baso # (0.0-0.1) K/mm3 Seg Neutrophils % (40.0-70.0) % Seg Neutrophils # (1.8-7.7) K/mm3 Sodium (137-145) mmol/L Potassium (3.6-5.0) mmol/L Chloride (98-107) mmol/L Carbon Dioxide (22-30) mmol/L Anion Gap mmol/L BUN (7-17) mg/dL Creatinine (0.7-1.2) mg/dL Estimated GFR ml/min BUN/Creatinine Ratio % Glucose (65-100) mg/dL Calcium (8.4-10.2) mg/dL Phosphorus 2.70 (2.5-4.5) mg/dL Magnesium 2.20 (1.7-2.3) mg/dL Total Bilirubin (0.1-1.2) mg/dL Direct Bilirubin (0-0.2) mg/dL Indirect Bilirubin mg/dL AST (5-40) units/L ALT (7-56) units/L Alkaline Phosphatase (35-129) units/L Total Creatine Kinase 54 (30-135) units/L Troponin T < 0.010 < 0.010 (0.00-0.029) ng/mL NT-Pro-B Natriuret Pep (0-450) pg/mL Total Protein (6.3-8.2) g/dL Albumin (3.9-5) g/dL Albumin/Globulin Ratio % TSH (0.270-4.200) mlU/mL 12/31/18 12/31/18 Range/Units 20:08 20:08 WBC (4.5-11.0) K/mm3 RBC (3.65-5.03) M/mm3 Hgb (10.1-14.3) gm/dl Hct (30.3-42.9) % MCV (79-97) fl MCH (28-32) pg MCHC (30-34) % RDW (13.2-15.2) % Plt Count (140-440) K/mm3 Lymph % (Auto) (13.4-35.0) % [place] % (Auto) (0.0-7.3) % Eos % (Auto) (0.0-4.3) % Baso % (Auto) (0.0-1.8) % Lymph # (1.2-5.4) K/mm3 [place] # (0.0-0.8) K/mm3 Eos # (0.0-0.4) K/mm3 Baso # (0.0-0.1) K/mm3 Seg Neutrophils % (40.0-70.0) % Seg Neutrophils # (1.8-7.7) K/mm3 Sodium (137-145) mmol/L Potassium (3.6-5.0) mmol/L Chloride (98-107) mmol/L Carbon Dioxide (22-30) mmol/L Anion Gap mmol/L BUN (7-17) mg/dL Creatinine (0.7-1.2) mg/dL Estimated GFR ml/min BUN/Creatinine Ratio % Glucose (65-100) mg/dL Calcium (8.4-10.2) mg/dL Phosphorus (2.5-4.5) mg/dL Magnesium (1.7-2.3) mg/dL Total Bilirubin (0.1-1.2) mg/dL Direct Bilirubin (0-0.2) mg/dL Indirect Bilirubin mg/dL AST (5-40) units/L ALT (7-56) units/L Alkaline Phosphatase (35-129) units/L Total Creatine Kinase (30-135) units/L Troponin T (0.00-0.029) ng/mL NT-Pro-B Natriuret Pep 5.85 (0-450) pg/mL Total Protein (6.3-8.2) g/dL Albumin (3.9-5) g/dL Albumin/Globulin Ratio % TSH 1.020 (0.270-4.200) mlU/mL - EKG Data EKG shows normal: sinus rhythm, axis, intervals, QRS complexes, ST-T waves Rate: normal - Medical Decision Making Patient is a 33-year-old female who presents emergency room with complaints of palpitations that began again last night. States she has associated left-sided chest pain that radiated to her left arm. She states she is currently 18 weeks . Patient denies any shortness of breath, lower extremity edema, abdominal pain, vaginal bleeding. She denies any caffeine or stimulant use. Patient has a past medical history of asthma. she denies any new medications. she states prior to she did use tobacco products and alcohol. She states that her BRAINER is Dr. Brumfield. She states that the only medications she is taking currently are promethazine and Tylenol. Patient states that she has been seen by [facility] for these palpitations. she states that she wore a Holter monitor this week and turned it and yesterday but has not received her results yet. She states that she has an echo scheduled for next week and a lower extremity ultrasound scheduled. /P:1/A:2. vitals are stable, pt only had one episode of tachycardia after receiving benadryl, otherwise during repeats of her vitals and on her EKG her HR is normal. CBC, CMP, TSH, CK, BNP, electrolytes are all normal. troponin is negative x3. EKG is WNL. Wells criteria with very low probability of PE with only a 1.3% chance of PE, pt denies any SOB, pleuritic CP, unilateral LE edema. SPENSER score and heart score is 0. 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 pt already has an ECHO and LE ultrasound scheduled as an outpatient next week. advised pt to please increase your water intake. Please avoid any caffeine intake including sodas, energy drinks, tea, etc. please follow-up with your car diologist and your BRAINER in the next 3-5 days. return to the emergency room for any new or worsening symptoms. - Differential Diagnosis arrhythmia, valve dysfunction, electrolyte disturbance, hyperthyroid, PE Critical care attestation.: If time is entered above; I have spent that time in minutes in the direct care of this critically ill patient, excluding procedure time. ED Disposition Clinical Impression: Palpitations Chest pain Qualifiers: Chest pain type: unspecified Qualified Code(s): R07.9 - Chest pain, unspecified Disposition: DC-01 TO HOME OR SELFCARE Is pt being admited?: No Does the pt Need Aspirin: No Condition: Stable Instructions: Chest Pain (ED), Palpitations (ED) Additional Instructions: Please increase your water intake. Please avoid any caffeine intake including sodas, energy drinks, tea, etc. please follow-up with your hydraulic boom operator and your BRAINER in the next 3-5 days. return to the emergency room for any new or worsening symptoms. Referrals: GIOVANNA LUI MD [Primary Care Provider] - 3-5 Days your, BRAINER [Other] - 3-5 Days [facility] [Provider Group] - 3-5 Days Time of Disposition: 22:24 Print Language: GEORGIAN
[2018-12-31 21:25] VITALS: BP 101/81
== END 2018-12-31 22:30 | disposition home or self-care (01) ==
LOC: ED 14:32
DX: O26.892 Other specified pregnancy related conditions, second trimester (principal); O99.512 Diseases of the respiratory system complicating pregnancy, second trimester; R00.2 Palpitations; R07.89 Other chest pain; J45.909 Unspecified asthma, uncomplicated; Z3A.18 18 weeks gestation of pregnancy
CPT/HCPCS: 36415; 80048; 80076; 82550; 83735; 83880; 84100; 84443; 84484; 85025; 93005; 93010; 96374; 96375; 99284; J1200; J2765; J7030

== ENCOUNTER 2019-01-16 22:28 | Emergency (ER) | payer MEDICAID ==
--- NOTE | 2019-01-16 22:40 | Event Note ---
ED Screening Note Date of service: 01/16/19 Time: 22:35 ED Screening Note: This is a 33 y.o. F. that presents to the ER with pelvic pain. Patient is 19 weeks . Followed by [facility] [employer] [facility] in [place] Dr. Brumfield. Denies hematuria, UTI symptoms, and vaginal bleeding. Reports pain as sharp and radiating from pelvic to back LMP 08/2018, A2 (1 & 1 miscarriage) This initial assessment/diagnostic orders/clinical plan/treatment(s) is/are subject to change based on patients health status, clinical progression and re- assessment by fellow clinical providers in the ED. Further treatment and workup at subsequent clinical providers discretion. Patient/guardian urged not to elope from the ED as their condition may be serious if not clinically assessed and managed. Initial orders include: Labs and OB US
[2019-01-16] MEDS ORDERED: ZOFRAN IV ONE ×2 (23:09→23:57)
--- NOTE | 2019-01-16 23:45 | Emergency Department Report ---
ED Abdominal Pain HPI - General Chief Complaint: Abdominal Pain Stated Complaint: ABD PAIN Time Seen by Provider: 01/16/19 22:35 Source: patient Mode of arrival: Ambulatory Limitations: No Limitations - History of Present Illness Initial Comments: This is a 33 y.o. F. that presents to the ER with bilat lower abdominal and pelvic pain. Patient is 19 weeks . Followed by [facility] in [place] Dr. Brumfield. States pain started this am and has progressively worsened. Denies hematuria, UTI symptoms, or vaginal bleeding. there is no vomiting. There is intermittent nausea. Reports pain as sharp and radiating from pelvic to back. LMP 08/2018, A2 (1 & 1 miscarriage). MD Complaint: abdominal pain Onset/Timin -: days(s) Radiation: LLQ, RLQ, suprapubic Migration to: LLQ, RLQ, suprapubic Severity: moderate Severity scale (0 -10): 5 Quality: cramping, aching Consistency: constant Improves With: nothing Worsens With: movement Associated Symptoms: nausea. denies: vomiting, diarrhea, fever, chills, constipation, dysuria, melena - Related Data LMP Date: 08/23/18 LMP (females 10-50): Previous Rx's Medication Instructions Recorded Last Taken Type ALBUTEROL Inhaler (OR & NICU) 2 puff IH QID PRN #1 inhalation 05/26/14 Unknown Rx [ProAir HFA Inhaler] Loratadine [Claritin] 10 mg PO DAILY #30 tablet 05/26/14 Unknown Rx Promethazine /Codeine 5 ml PO Q6H PRN #150 ml 05/26/14 Unknown Rx [Phenergan/Codeine 6.25-10 mg/5 ml] predniSONE [Deltasone] 40 mg PO QDAY #10 tab 05/26/14 Unknown Rx Albuterol Sulfate [Ventolin HFA] 2 puff IH Q4H PRN #1 hfa.aer.ad 07/12/14 Unknown Rx Ondansetron [Zofran Odt] 4 mg PO Q6H PRN #15 tab.rapdis 07/12/14 Unknown Rx oxyCODONE /ACETAMINOPHEN [Percocet 1 tab PO Q6HR PRN #10 tablet 07/12/14 Unknown Rx 5/325] predniSONE [Deltasone] 50 mg PO QDAY #4 tab 07/12/14 Unknown Rx ALBUTEROL NEB's [Proventil 0.083% 2.5 mg IH TID PRN #1 box 08/18/14 Unknown Rx NEBS] predniSONE [Prednisone] 40 mg PO DAILY 5 Days tablet 08/18/14 Unknown Rx Acetaminophen/Codeine [Tylenol 1 tab PO Q6H PRN #12 tab 02/20/18 Unknown Rx /Codeine # 3 tab] Doxylamine Succinate [Sleep Aid] 25 mg PO BID #40 tablet 05/25/18 Unknown Rx Kassi Root [Kassi] 250 mg PO QID #40 capsule 05/25/18 Unknown Rx Pnv,Calcium 72/Iron/Folic Acid 1 each PO QDAY #90 tablet 05/25/18 Unknown Rx [ Plus Tablet] Pyridoxine HCl (Vitamin B6) [B-6] 200 mg PO BID #40 tablet.er 05/25/18 Unknown Rx Acetaminophen [Mapap] 650 mg PO QID PRN #30 tablet 01/17/19 Unknown Rx Ondansetron [Zofran Odt] 4 mg PO Q8HR PRN #12 tab.rapdis 01/17/19 Unknown Rx Allergies Allergy/AdvReac Type Severity Reaction Status Date / Time aspirin Allergy Rash Verified 08/09/13 04:58 iodine Allergy Swelling Verified 04/27/14 21:36 shellfish derived Allergy Swelling Verified 04/27/14 21:36 ED Review of Systems ROS: Stated complaint: ABD PAIN Other details as noted in HPI Constitutional: denies: chills, fever Eyes: denies: eye pain, eye discharge, vision change ENT: denies: ear pain, throat pain Respiratory: denies: cough, shortness of breath, wheezing Cardiovascular: denies: chest pain, palpitations Endocrine: no symptoms reported Gastrointestinal: abdominal pain, nausea. denies: vomiting, melena Genitourinary: denies: urgency, dysuria, hematuria, discharge Musculoskeletal: denies: back pain Skin: denies: rash, lesions Neurological: denies: headache, weakness, paresthesias Psychiatric: denies: anxiety, depression Hematological/Lymphatic: denies: easy bleeding, easy bruising ED Past Medical Hx - Past Medical History Hx Kidney Stones: Yes Hx Asthma: Yes - Surgical History Additional Surgical History: D&C - Social History Smoking Status: Never Smoker Substance Use Type: None - Medications Home Medications: Home Medications Medication Instructions Recorded Confirmed Last Taken Type ALBUTEROL Inhaler (OR & NICU) 2 puff IH QID PRN #1 inhalation 05/26/14 Unknown Rx [ProAir HFA Inhaler] Loratadine [Claritin] 10 mg PO DAILY #30 tablet 05/26/14 Unknown Rx Promethazine /Codeine 5 ml PO Q6H PRN #150 ml 05/26/14 Unknown Rx [Phenergan/Codeine 6.25-10 mg/5 ml] predniSONE [Deltasone] 40 mg PO QDAY #10 tab 05/26/14 Unknown Rx Albuterol Sulfate [Ventolin HFA] 2 puff IH Q4H PRN #1 hfa.aer.ad 07/12/14 Unknown Rx Ondansetron [Zofran Odt] 4 mg PO Q6H PRN #15 tab.rapdis 07/12/14 Unknown Rx oxyCODONE /ACETAMINOPHEN [Percocet 1 tab PO Q6HR PRN #10 tablet 07/12/14 Unknown Rx 5/325] predniSONE [Deltasone] 50 mg PO QDAY #4 tab 07/12/14 Unknown Rx ALBUTEROL NEB's [Proventil 0.083% 2.5 mg IH TID PRN #1 box 08/18/14 Unknown Rx NEBS] predniSONE [Prednisone] 40 mg PO DAILY 5 Days tablet 08/18/14 Unknown Rx Acetaminophen/Codeine [Tylenol 1 tab PO Q6H PRN #12 tab 02/20/18 Unknown Rx /Codeine # 3 tab] Doxylamine Succinate [Sleep Aid] 25 mg PO BID #40 tablet 05/25/18 Unknown Rx Kassi Root [Kassi] 250 mg PO QID #40 capsule 05/25/18 Unknown Rx Pnv,Calcium 72/Iron/Folic Acid 1 each PO QDAY #90 tablet 05/25/18 Unknown Rx [ Plus Tablet] Pyridoxine HCl (Vitamin B6) [B-6] 200 mg PO BID #40 tablet.er 05/25/18 Unknown Rx Acetaminophen [Mapap] 650 mg PO QID PRN #30 tablet 01/17/19 Unknown Rx Ondansetron [Zofran Odt] 4 mg PO Q8HR PRN #12 tab.rapdis 10/14/19 Unknown Rx ED Physical Exam - General Limitations: No Limitations General appearance: alert, in no apparent distress - Head Head exam: Present: atraumatic, normocephalic - Eye Eye exam: Present: normal appearance - ENT ENT exam: Present: mucous membranes moist - Neck Neck exam: Present: normal inspection - Respiratory Respiratory exam: Present: normal lung sounds bilaterally. Absent: respiratory distress - Cardiovascular Cardiovascular Exam: Present: regular rate, normal rhythm, normal heart sounds. Absent: systolic murmur, diastolic murmur, rubs, gallop - GI/Abdominal GI/Abdominal exam: Present: soft, tenderness (bilat LQ ), normal bowel sounds. Absent: distended, guarding, rebound, rigid, bruit, hernia - Rectal Rectal exam: Present: deferred - External exam: Present: normal external exam. Absent: erythema, swelling, lesions Speculum exam: Present: vaginal discharge (white ). Absent: erythema, cervical discharge, vaginal bleeding, foreign body, tissue, laceration Bi-manual exam: Absent: cervical motion tendernes - Extremities Exam Extremities exam: Present: normal inspection, full ROM. Absent: tenderness, pedal edema - Back Exam Back exam: Present: normal inspection, full ROM. Absent: tenderness, CVA tenderness (R), CVA tenderness (L), rash noted - Neurological Exam Neurological exam: Present: alert, oriented X3, CN II-XII intact, normal gait, reflexes normal. Absent: motor sensory deficit - Psychiatric Psychiatric exam: Present: normal affect, normal mood - Skin Skin exam: Present: warm, dry, intact, normal color. Absent: rash ED Course Vital Signs 01/16/19 01/17/19 01/17/19 22:31 03:17 03:19 Temperature 98.2 F 98.3 F Pulse Rate 112 H 96 H 96 H Respiratory 18 16 16 Rate Blood Pressure 114/62 Blood Pressure 112/71 112/71 [Right] O2 Sat by Pulse 99 99 98 Oximetry ED Medical Decision Making - Lab Data Result diagrams: 01/16/19 23:31 Labs 01/16/19 01/16/19 01/16/19 22:50 23:31 23:31 WBC 14.7 H RBC 3.56 L Hgb 9.9 L Hct 30.2 L MCV 85 MCH 28 MCHC 33 RDW 14.4 Plt Count 286 HCG, Quant 48991 H Urine Color Urine Turbidity Urine pH Ur Specific [place] Urine Protein Urine Glucose (UA) Urine Ketones Urine Blood Urine Nitrite Urine Bilirubin Urine Urobilinogen Ur Leukocyte Esterase Urine WBC (Auto) Urine RBC (Auto) U Epithel Cells (Auto) Urine Mucus Urine HCG, Qual Blood Type B POSITIVE 01/16/19 Unknown WBC RBC Hgb Hct MCV MCH MCHC RDW Plt Count HCG, Quant Urine Color Yellow Urine Turbidity Clear Urine pH 5.0 Ur Specific [place] 1.020 Urine Protein <15 mg/dl Urine Glucose (UA) Neg Urine Ketones 20 Urine Blood Neg Urine Nitrite Neg Urine Bilirubin Neg Urine Urobilinogen < 2.0 Ur Leukocyte Esterase Neg Urine WBC (Auto) 2.0 Urine RBC (Auto) 2.0 U Epithel Cells (Auto) 1.0 Urine Mucus 2+ Urine HCG, Qual Positive A Blood Type - Radiology Data Radiology results: report reviewed, image reviewed Findings [facility] [address] [place] [address] Ultrasound Report Signed Patient: POLLO MOHR MR#: [id number] : 1985 Acct:[id number] Age/Sex: 33 / F ADM Date: 01/16/19 Loc: ED Attending Dr: Ordering Physician: CAITIE GOODE Date of Service: 01/16/19 Procedure(s): US OB >= 14 weeks Fetus Accession Number(s): [id number] cc: CAITIE GOODE US OB >= 14 weeks Fetus INDICATION / CLINICAL INFORMATION: 19 wks preg, pelvic pain. COMPARISON: None available. FINDINGS: There is a single viable intrauterine gestation in the transverse position with the head on the maternal right side. heart rate 137 bpm Grade 1 anterior placenta is free of the os. The ERASMO is 8, within normal limits. measurements: BPD 4.4 equal to 19 weeks 2 days Head circumference 17 equal to 19 weeks 4 days Abdominal circumference 17.8 equal to 20 weeks Femur length 3.1 equals to 19 weeks 3 days Estimated body weight 311 g. IMPRESSION: 1. Viable 19 week 4 day single intrauterine gestation. Signer Name: Nelson Rothman MD Signed: 01/17/2019 1:13 AM Workstation Name: [id number] Transcribed By: JAMIL Dictated By: Nelson Rothman MD Electronically Authenticated By: Nelson Rothman MD Signed Date/Time: 01/17/19112 DD/ 9 TD/TT: - Medical Decision Making Ultrasound results: intact IUP 19 weeks and 4 days heart rate 137 bpm. h/h: 9.9/ 30.2, Ua: no luek, no nitrates, vaginal exam is normal,no bleeding, OS is closed, Blood type is B pos, pt denies concern for STI , there is no dysu liz frequency, or urgency, no hx of renal stones. pt is currently a/o x 3 ambulatory with steady gait. there is no n/v pt is tolerating po intake, pain is now: 2/10 vice 8/10 on presentation to ed. pt will follow up with OBGYN Dr. Brumfield. as scheduled on thursday, tomorrow. pt verbalized agreement and understanding with discharge plan. Critical care attestation.: If time is entered above; I have spent that time in minutes in the direct care of this critically ill patient, excluding procedure time. ED Disposition Clinical Impression: Abdominal pain during intrauterine , Threatened miscarriage Disposition: TO HOME OR SELFCARE Is pt being admited?: No Does the pt Need Aspirin: No Condition: Stable Instructions: Threatened Miscarriage (ED), Abdominal Pain in (ED) Additional Instructions: Follow up with your OBGYN Dr Brumfield tomorrow as scheduled, Pelvic Rest as discussed, continue to hydrate as discussed and agreed. Prescriptions: Acetaminophen [Mapap] 650 mg PO QID PRN #30 tablet PRN Reason: Pain , Severe (7-10) Ondansetron [Zofran Odt] 4 mg PO Q8HR PRN #12 tab.rapdis PRN Reason: Nausea And Vomiting Referrals: PRIMARY CARE, [Primary Care Provider] - 3-5 Days Forms: Work/School Release Form(ED) Time of Disposition: 03:54
[2019-01-16] MEDS ORDERED: MORPHINE IV ONE (23:57)
[2019-01-16] MEDS ORDERED: NACL 0.9% 1000 ML 1,000 ML IV ONE (23:58)
[2019-01-16 23:59] LABS: Hematocrit 30.2 % (30.3-42.9); Hemoglobin 9.9 gm/dl (10.1-14.3); Mean Corpuscular HGB Conc 33 % (30-34); Mean Corpuscular Volume 85 fl (79-97); Platelet Count 286 K/mm3 (140-440); Red Blood Count 3.56 M/mm3 (3.65-5.03); Red Cell Distribution Width 14.4 % (13.2-15.2)
--- NOTE | 2019-01-17 01:18 | Ultrasound Report ---
US OB >= 14 weeks Fetus INDICATION / CLINICAL INFORMATION: 19 wks preg, pelvic pain. COMPARISON: None available. FINDINGS: There is a single viable intrauterine gestation in the transverse position with the head on the mater nal right side. heart rate 137 bpm Grade 1 anterior placenta is free of the os. The ERASMO is 8, within normal limits. measurements: BPD 4.4 equal to 19 weeks 2 days Head circumference 17 equal to 19 weeks 4 days Abdominal circumference 17.8 equal to 20 weeks Femur length 3.1 equals to 19 weeks 3 days Estimated body weight 311 g. IMPRESSION: 1. Viable 19 week 4 day single intrauterine gestation. Signer Name: Nelson Rothman MD Signed: 01/17/2019 1:13 AM Workstation Name: [id number]
[2019-01-17 01:52] LABS: Bilirubin,Urine NEG (Negative); Blood,Urine NEG (Negative); Color,Urine Yellow (Yellow); Mucus,Urine 2+ /HPF; Protein,Urine <15 mg/dL mg/dL (Negative); Urobilinogen,Urine < 2.0 mg/dL (<2.0)
[2019-01-17 01:55] LABS: HCG Qualitative,Urine Positive (Negative)
[2019-01-17 03:18] VITALS: BP 112/71
== END 2019-01-17 03:19 | disposition home or self-care (01) ==
LOC: ED 22:28
DX: O20.0 Threatened abortion (principal); J45.909 Unspecified asthma, uncomplicated; Z79.899 Other long term (current) drug therapy; Z88.6 Allergy status to analgesic agent; Z91.018 Allergy to other foods
CPT/HCPCS: 36415; 76805; 81001; 81025; 84702; 85027; 86900; 86901; 96374; 96375; 96376; 99284; J2270; J2405; J7030

== ENCOUNTER 2020-03-02 01:48 | Emergency (ER) | payer MEDICAID ==
[2020-03-02 03:25] VITALS: BP 123/78
[2020-03-02 03:48] LABS: Bilirubin,Urine NEG (Negative); Blood,Urine NEG (Negative); Color,Urine Yellow (Yellow); Mucus,Urine FEW /HPF; Protein,Urine <15 mg/dL mg/dL (Negative); Urobilinogen,Urine < 2.0 mg/dL (<2.0)
[2020-03-02 03:55] LABS: Basophils % (Auto) 0.2 % (0.0-1.8); Eosinophils # (Auto) 0.2 K/mm3 (0.0-0.4); Eosinophils % (Auto) 2.1 % (0.0-4.3); Hematocrit 37.6 % (30.3-42.9); Hemoglobin 12.5 gm/dl (10.1-14.3); Lymphocytes # (Auto) 2.3 K/mm3 (1.2-5.4); Lymphocytes % (Auto) 24.2 % (13.4-35.0); Mean Corpuscular HGB Conc 33 % (30-34); Mean Corpuscular Volume 86 fl (79-97); Monocytes # (Auto) 0.7 K/mm3 (0.0-0.8); Monocytes % (Auto) 7.5 % (0.0-7.3); Platelet Count 292 K/mm3 (140-440); Red Blood Count 4.36 M/mm3 (3.65-5.03); Red Cell Distribution Width 13.6 % (13.2-15.2)
[2020-03-02 04:22] LABS: Alanine Aminotransferase 23 units/L (7-56); Albumin 4.4 g/dL (3.9-5); Blood Urea Nitrogen 12 mg/dL (7-17); Calcium 9.7 mg/dL (8.4-10.2); Hemolysis Index 3
[2020-03-02 04:26] LABS: BUN/Creatinine Ratio 17
[2020-03-02] MEDS ORDERED: MORPHINE 4 MG/1 ML INJ IV STA (04:28)
[2020-03-02] MEDS ORDERED: ONDANSETRON 4 MG/2 ML INJ IV STA (04:29)
--- NOTE | 2020-03-02 05:20 | Cat Scan Report ---
CT ABDOMEN AND PELVIS WITHOUT IV CONTRAST INDICATION: Patient complains of RIGHT flank and RIGHT pelvic pain x 1 week.. COMPARISON: None available. TECHNIQUE: All CT scans at this facility use dose modulation, automated exposure control, iterative reconstructi on or weight based dosing, when appropriate, to reduce radiation dose to as low as reasonably achieva ble. FINDINGS: Lung Bases: No significant abnormality. Skeletal System: No acute abnormality. ABDOMEN: Liver: No significant abnormality. Gallbladder: No significant abnormality. Bile Ducts: No significant abnormality. Pancreas: No significant abnormality. Spleen: There is a 2.3 cm cyst in the superior spleen with minimal peripheral calcification. No acute findings. Adrenals: No significant abnormality. Right Kidney: There is a punctate lower pole nonobstructing calyceal stone. No hydronephrosis. Left Kidney: There is a 9 mm nonobstructing lower pole calyceal stone. No hydronephrosis. Upper GI tract: No significant abnormality. Lymph Nodes: No significant adenopathy. Aorta: No significant abnormality. Additional Findings: Midline rectus diastases is noted. There is a tiny periumbilical fat-containing ventral hernia as well. PELVIS: Colon: No acute abnormality. Urinary Bladder and Distal Ureters: No significant abnormality. Appendix: No significant abnormality. Lymph Nodes: No significant adenopathy. Additional Findings: Trace free fluid in the cul-de-sac is likely physiologic. IMPRESSION: 1. Within the limitations of non contrast technique, no acute process in the abdomen or pelvis. 2. There is minimal nephrolithiasis, as above. No hydronephrosis. Signer Name: Robb Palma MD Signed: 03/02/2020 5:16 AM Workstation Name: [id number]
--- NOTE | 2020-03-02 05:50 | Emergency Department Report ---
ED Abdominal Pain HPI - General Chief Complaint: Abdominal Pain Stated Complaint: ADB PAIN Time Seen by Provider: 03/02/20 04:17 Source: patient Mode of arrival: Ambulatory Limitations: No Limitations - History of Present Illness MD Complaint: abdominal pain Radiation: none Migration to: no migration Severity: moderate Severity scale (0 -10): 10 Quality: aching, dull Consistency: constant Improves With: eating Worsens With: nothing - Related Data Previous Rx's Medication Instructions Recorded Last Taken Type Loratadine (Nf) [Claritin] 10 mg PO DAILY #30 tablet 05/26/14 Unknown Rx Promethazine /Codeine 5 ml PO Q6H PRN #150 ml 05/26/14 Unknown Rx [Phenergan/Codeine 6.25-10 mg/5 ml] predniSONE [Deltasone] 40 mg PO QDAY #10 tab 05/26/14 Unknown Rx Albuterol Sulfate [Ventolin HFA] 2 puff IH Q4H PRN #1 hfa.aer.ad 07/12/14 Unknown Rx Ondansetron [Zofran Odt] 4 mg PO Q6H PRN #15 tab.rapdis 07/12/14 Unknown Rx oxyCODONE /ACETAMINOPHEN [Percocet 1 tab PO Q6HR PRN #10 tablet 07/12/14 Unknown Rx 5/325] predniSONE [Deltasone] 50 mg PO QDAY #4 tab 07/12/14 Unknown Rx ALBUTEROL NEB's [Proventil 0.083% 2.5 mg IH TID PRN #1 box 08/18/14 Unknown Rx NEBS] predniSONE [Prednisone] 40 mg PO DAILY 5 Days tablet 08/18/14 Unknown Rx Acetaminophen/Codeine [Tylenol 1 tab PO Q6H PRN #12 tab 02/20/18 Unknown Rx /Codeine # 3 tab] Doxylamine Succinate [Sleep Aid] 25 mg PO BID #40 tablet 05/25/18 Unknown Rx Kassi Root [Kassi] 250 mg PO QID #40 capsule 05/25/18 Unknown Rx Pnv,Calcium 72/Iron/Folic Acid 1 each PO QDAY #90 tablet 05/25/18 Unknown Rx [ Plus Tablet] Pyridoxine HCl (Vitamin B6) [B-6] 200 mg PO BID #40 tablet.er 05/25/18 Unknown Rx Acetaminophen [Mapap] 650 mg PO QID PRN #30 tablet 01/17/19 Unknown Rx Ondansetron [Zofran ODT TAB] 4 mg PO Q8HR PRN #12 tab.rapdis 03/02/20 Unknown Rx traMADoL [Ultram] 50 mg PO Q6HR PRN #15 tablet 03/02/20 Unknown Rx Allergies Allergy/AdvReac Type Severity Reaction Status Date / Time aspirin Allergy Rash Verified 08/09/13 04:58 iodine Allergy Swelling Verified 04/27/14 21:36 shellfish derived Allergy Swelling Verified 04/27/14 21:36 ED Review of Systems ROS: Stated complaint: ADB PAIN Other details as noted in HPI Comment: All other systems reviewed and negative ED Past Medical Hx - Past Medical History Previous Medical History?: Yes Hx Kidney Stones: Yes Hx Asthma: Yes - Surgical History Past Surgical History?: Yes Additional Surgical History: D&C - Social History Smoking Status: Current Every Day Smoker Substance Use Type: None - Medications Home Medications: Home Medications Medication Instructions Recorded Confirmed Last Taken Type Loratadine (Nf) [Claritin] 10 mg PO DAILY #30 tablet 05/26/14 Unknown Rx Promethazine /Codeine 5 ml PO Q6H PRN #150 ml 05/26/14 Unknown Rx [Phenergan/Codeine 6.25-10 mg/5 ml] predniSONE [Deltasone] 40 mg PO QDAY #10 tab 05/26/14 Unknown Rx Albuterol Sulfate [Ventolin HFA] 2 puff IH Q4H PRN #1 hfa.aer.ad 07/12/14 Unknown Rx Ondansetron [Zofran Odt] 4 mg PO Q6H PRN #15 tab.rapdis 07/12/14 Unknown Rx oxyCODONE /ACETAMINOPHEN [Percocet 1 tab PO Q6HR PRN #10 tablet 07/12/14 Unknown Rx 5/325] predniSONE [Deltasone] 50 mg PO QDAY #4 tab 07/12/14 Unknown Rx ALBUTEROL NEB's [Proventil 0.083% 2.5 mg IH TID PRN #1 box 08/18/14 Unknown Rx NEBS] predniSONE [Prednisone] 40 mg PO DAILY 5 Days tablet 08/18/14 Unknown Rx Acetaminophen/Codeine [Tylenol 1 tab PO Q6H PRN #12 tab 02/20/18 Unknown Rx /Codeine # 3 tab] Doxylamine Succinate [Sleep Aid] 25 mg PO BID #40 tablet 05/25/18 Unknown Rx Kassi Root [Kassi] 250 mg PO QID #40 capsule 05/25/18 Unknown Rx Pnv,Calcium 72/Iron/Folic Acid 1 each PO QDAY #90 tablet 05/25/18 Unknown Rx [ Plus Tablet] Pyridoxine HCl (Vitamin B6) [B-6] 200 mg PO BID #40 tablet.er 05/25/18 Unknown Rx Acetaminophen [Mapap] 650 mg PO QID PRN #30 tablet 01/17/19 Unknown Rx Ondansetron [Zofran ODT TAB] 4 mg PO Q8HR PRN #12 tab.rapdis 03/02/20 Unknown Rx traMADoL [Ultram] 50 mg PO Q6HR PRN #15 tablet 03/02/20 Unknown Rx ED Physical Exam - General Limitations: No Limitations General appearance: alert, in no apparent distress - Head Head exam: Present: atraumatic, normocephalic - Eye Eye exam: Present: normal appearance, PERRL, EOMI, scleral icterus - ENT ENT exam: Present: mucous membranes moist - Neck Neck exam: Present: normal inspection - Respiratory Respiratory exam: Present: normal lung sounds bilaterally. Absent: respiratory distress - Cardiovascular Cardiovascular Exam: Present: regular rate, normal rhythm. Absent: systolic murmur, diastolic murmur, rubs, gallop - GI/Abdominal GI/Abdominal exam: Present: soft, tenderness, normal bowel sounds - Extremities Exam Extremities exam: Present: normal inspection - Back Exam Back exam: Present: normal inspection - Neurological Exam Neurological exam: Present: alert, oriented X3 - Psychiatric Psychiatric exam: Present: normal affect, normal mood - Skin Skin exam: Present: warm, dry, intact, normal color. Absent: rash ED Course Vital Signs 03/02/20 03:24 Temperature 98.3 F Pulse Rate 86 Respiratory 18 Rate Blood Pressure 123/78 [Left] O2 Sat by Pulse 99 Oximetry ED Medical Decision Making - Lab Data Result diagrams: 03/02/20 03:31 03/02/20 03:31 - Radiology Data Radiology results: report reviewed [address] [place] [id number] Cat Scan Report Signed Patient: POLLO MOHR MR#: [id number] : 1985 Acct:[id number] Age/Sex: 34 / F ADM Date: 03/02/20 Loc: ED Attending Dr: Ordering Physician: TOD HUERTAS Date of Service: 03/02/20 Procedure(s): CT abdomen pelvis wo con Accession Number(s): [id number] cc: TOD HUERTAS CT ABDOMEN AND PELVIS WITHOUT IV CONTRAST INDICATION: Patient complains of RIGHT flank and RIGHT pelvic pain x 1 week.. COMPARISON: None available. TECHNIQUE: All CT scans at this facility use dose modulation, automated exposure control, iterative reconstruction or weight based dosing, when appropriate, to reduce radiation dose to as low as reasonably achievable. FINDINGS: Lung Bases: No significant abnormality. Skeletal System: No acute abnormality. ABDOMEN: Liver: No significant abnormality. Gallbladder: No significant abnormality. Bile Ducts: No significant abnormality. Pancreas: No significant abnormality. Spleen: There is a 2.3 cm cyst in the superior spleen with minimal peripheral calcification. No acute findings. Adrenals: No significant abnormality. Right Kidney: There is a punctate lower pole nonobstructing calyceal stone. No hydronephrosis. Left Kidney: There is a 9 mm nonobstructing lower pole calyceal stone. No hydronephrosis. Upper GI tract: No significant abnormality. Lymph Nodes: No significant adenopathy. Aorta: No significant abnormality. Additional Findings: Midline rectus diastases is noted. There is a tiny periumbilical fat- containing ventral hernia as well. PELVIS: Colon: No acute abnormality. Urinary Bladder and Distal Ureters: No significant abnormality. Appendix: No significant abnormality. Lymph Nodes: No significant adenopathy. Additional Findings: Trace free fluid in the cul-de-sac is likely physiologic. IMPRESSION: 1. Within the limitations of non contrast technique, no acute process in the a bdomen or pelvis. 2. There is minimal nephrolithiasis, as above. No hydronephrosis. Signer Name: Robb Palma MD Signed: 03/02/2020 5:16 AM Workstation Name: [id number] Transcribed By: LEONARD Dictated By: Robb Palma MD Electronically Authenticated By: Robb Palma MD Signed Date/Time: 03/02/20515 DD/ 9 TD/TT: - Medical Decision Making This patient presents with abdominal pain of unclear etiology. A CT scan was performed to evaluate for potential causes of the abdominal pain, however, neither the clinical exam nor the CT has identified an emergent etiology for the abdominal pain. Specifically, given the benign exam, the laboratory studies, and unremarkable CT, I have a very low suspicion for appendicitis, ischemic bowel, bowel perforation, or any other life threatening disease. I have discussed with the patient the level of uncertainty with undifferentiated abdominal pain and clearly explained the need to follow-up as noted on the discharge instructions, or return to the Emergency Department immediately if the pain worsens, develops fever, persistent and uncontrollable vomiting, or for any new symptoms or concerns. Critical care attestation.: If time is entered above; I have spent that time in minutes in the direct care of this critically ill patient, excluding procedure time. ED Disposition Clinical Impression: Kidney stone Disposition: DC-01 TO HOME OR SELFCARE Is pt being admited?: No Does the pt Need Aspirin: No Condition: Stable Instructions: Abdominal Pain (ED), Kidney Stones, [id number], Renal Colic Prescriptions: traMADoL [Ultram] 50 mg PO Q6HR PRN #15 tablet PRN Reason: Pain Ondansetron [Zofran ODT TAB] 4 mg PO Q8HR PRN #12 tab.rapdis PRN Reason: Nausea And Vomiting Referrals: PRIMARY CAREMD [Primary Care Provider] - 3-5 Days SAVANAH ELLIOTT III, MD [Emergency Provider] - 3-5 Days
== END 2020-03-02 06:05 | disposition home or self-care (01) ==
LOC: ED 01:48
DX: N20.0 Calculus of kidney (principal); J45.909 Unspecified asthma, uncomplicated; F17.200 Nicotine dependence, unspecified, uncomplicated; Z88.6 Allergy status to analgesic agent; Z91.018 Allergy to other foods
CPT/HCPCS: 36415; 74176; 80053; 81001; 83690; 84703; 85025; 96374; 96375; 99284; J2270; J2405